=== PATIENT | female | born 1985 | race Caucasian/White ===

== ENCOUNTER 2017-02-28 07:08 | Day surgery (SDC) | payer OTHER ==
--- NOTE | 2017-02-26 17:47 | GHP ---
[f rep st] PREOP HISTORY AND PHYSICAL DATE OF OPERATION: 02/28/2017. CHIEF COMPLAINT: Right breast mass. HISTORY OF PRESENT ILLNESS: The patient is a 32-year-old woman who discovered a right breast mass in August 2016. She had ultrasound diagnostic mammogram on 11/22/16 which did not show a mammographic correlate to the easily palpable firm nodule. The nodule has not changed in size. It feels like a piece of gravel. She reports occasional tenderness but no sharp pain, no nipple changes or drainage. She has a strong family history of breast cancer; mother diagnosed in her 60s, maternal aunt diagnosed in her 60s, and maternal great grandmother. Her aunts tested negative for BRCA 1 and 2. Her father has a history of prostate cancer. She is G1, P1, currently taking oral contraceptives. She was 11 years old at her 1st menstrual period and menstruates regularly. No changes since her office visit. PAST MEDICAL HISTORY: Allergic rhinitis, asthma, depression, high cholesterol, thoracic outlet syndrome. PAST SURGICAL HISTORY: section, knee reconstruction, knee surgery. MEDICATIONS: Acyclovir, Advair, Claritin, fluoxetine, Ortho Tri-Cyclen Lo, prednisone, Symbicort, Ventolin. ALLERGIES: Azithromycin, cephalosporins, minocycline, neomycin, sulfa. FAMILY MEDICAL HISTORY: Alcoholism, Alzheimer disease, asthma, blood transfusion, breast cancer as above, depression, diabetes, GERD, heart disease, hyperlipidemia, hypertension, hypothyroidism, ovarian cyst, pneumonia. SOCIAL HISTORY: She reports drinking 4 alcoholic beverages per week. She denies recreational drug use. She is a nonsmoker. She is with 1 child. She is a teacher. REVIEW OF SYSTEMS: A 10-point review of systems negative aside from HPI. PHYSICAL EXAMINATION: GENERAL: A well-developed, well-nourished woman in no acute distress. HEENT: Normocephalic, atraumatic. No hearing deficits. Pupils equal and round. No scleral icterus. Mucous membranes moist. NECK: Trachea midline. RESPIRATORY: No increased work of breathing. Clear to auscultation bilaterally. CARDIOVASCULAR: Regular rate and rhythm. No peripheral edema. BREASTS: Periareolar nodule in the right breast 12 o'clock position, 2 cm from the nipple. No other masses of bilateral breasts. LYMPH: No cervical, supraclavicular, or axillary lymphadenopathy. SKIN: Warm and dry. PSYCH: Mood and affect normal. IMPRESSION AND PLAN: The patient is a 32-year-old woman with a right breast periareolar nodule at the 12 o'clock position palpable. She presents for excisional biopsy. We discussed risks of surgery including but not limited to heart attack, stroke, blood clots, or . We discussed risk of infection, bleeding, need for additional procedures or scar. She understands risks and would like to proceed. The patient additionally seen by Dr. Washburn, who agrees with the above impression and plan. /[id number]/MODL MTDD
[2017-02-28] MEDS ORDERED: BUPIVACAINE 0.5% 30 ML SDV ONE (07:19)
[2017-02-28] MEDS ORDERED: LIDOCAINE 1% 5 ML SDV ONE (07:25)
[2017-02-28] MEDS ORDERED: LR 1,000 ML IV ONE (07:31)
[2017-02-28] MEDS ORDERED: VANCOMYCIN HCL/NORMAL SALINE 250 ML IV ONE (08:00)
[2017-02-28] MEDS ORDERED: MIDAZOLAM 2 MG/2 ML VIAL ONE (08:15)
[2017-02-28] MEDS ORDERED: fentaNYL 100 MCG/2 ML INJ ONE ×2 (08:25→08:39)
[2017-02-28] MEDS ORDERED: LIDOCAINE 1% 30 ML SDV ONE (08:37)
[2017-02-28] MEDS ORDERED: LIDOCAINE 2% 5 ML SDV ONE (08:38)
[2017-02-28] MEDS ORDERED: DEXAMETHASONE 4 MG/ML VIAL ONE (08:38)
[2017-02-28] MEDS ORDERED: KETOROLAC 30 MG/1 ML SDV ONE (08:49)
[2017-02-28] MEDS ORDERED: PROPOFOL/EMULSION 500 MG/50 ML BOTTLE IV ONE (08:53)
--- NOTE | 2017-02-28 09:12 | GOP ---
[f rep st] OPERATIVE REPORT DATE OF OPERATION: 02/28/2017 SURGEON: Cailin Washburn MD MEDICAL LIBRARY ASSISTANT: Jackeline Palmer PA-C. ANESTHESIA: Monitored anesthesia care with IV sedation. ANESTHESIOLOGIST: Dr. Do Katz. PREOPERATIVE DIAGNOSIS: Right breast mass. POSTOPERATIVE DIAGNOSIS: Right breast mass. PROCEDURE PERFORMED: Excisional biopsy right breast. FINDINGS: Firm tissue. SPECIMENS: Right breast mass. ESTIMATED BLOOD LOSS: 10 cc. INDICATIONS: The patient is a 32-year-old with a right breast mass. She has a family history of breast cancer. Her mammogram did not show an abnormality. DESCRIPTION OF PROCEDURE: The patient was brought in the operating room, placed supine on the table. Monitored anesthesia care with IV sedation was performed. Her right breast was prepped and draped in the usual sterile fashion. I infiltrated the area with 0.5% Marcaine mixed with 1% lidocaine. I made a periareolar incision. I created superior and inferior skin flaps. I dissected down beyond the level of the mass. This was completely excised and sent to Pathology for permanent. Hemostasis was achieved with electrocautery. The wound was closed with 3-0 Vicryl, followed by 4-0 Monocryl. Mastisol, Steri -Strips, and a sterile dressing were applied. She was awakened in the operating room and transferred to PACU in stable condition. /[id number]/MODL MTDD
== END 2017-02-28 11:10 | disposition home or self-care (01) ==
LOC: FSGY 07:08
PROVIDERS: ATTEND Surgery
PROC: 0HBT0ZX Excision of Right Breast, Open Approach, Diagnostic (ICD-10-PCS; principal; 2017-02-28 08:45)
DX: N60.31 Fibrosclerosis of right breast (principal); N60.91 Unspecified benign mammary dysplasia of right breast; N60.81 Other benign mammary dysplasias of right breast
CPT/HCPCS: J1100; J1885; J2250; J2704; J3010; J3370

== ENCOUNTER → 2018-08-07 | Outpatient (CLI) | payer OTHER | LOC: FIMAGING 10:13 | PROVIDERS: ATTEND Family Medicine | DX: R53.83 Other fatigue (principal); R63.5 Abnormal weight gain ==

== ENCOUNTER → 2018-10-20 | Day surgery (SDC) | payer OTHER ==
[~2018-10-20] MED LIST: ALBUTEROL 3 ML DEYVIAL IH PRN; ALBUTEROL 3 ML DEYVIAL ONE; BUPIVACAINE 0.25% 10 ML SDV ONE; DEXAMETHASONE 4 MG/ML VIAL ONE; DIAZEPAM 5 MG/ML 1 ML SYR IVP PRN; GLYCOPYRROLATE 0.2 MG/1 ML VIAL ONE; HYDROCODONE/APAP 5/325 TAB ONE; HYDROmorphONE/DILAUDID 2 MG/ML INJ IVP PRN; IBUPROFEN 600 MG TAB PO PRN; KETOROLAC 30 MG/1 ML SDV ONE; LABETALOL HCL 5 MG/ML 20 ML MDV IVP PRN; LIDOCAINE 1% 2 ML INJ ID PRN; LIDOCAINE 2% 5 ML SDV ONE; LR 1,000 ML IV ONE; MEPERIDINE 25 MG/0.5 ML AMP IVP PRN; MIDAZOLAM 2 MG/2 ML VIAL IVP ONE; NALOXONE HCL 0.4 MG/ML INJ IVP PRN; ONDANSETRON 4 MG/2 ML VIAL ONE; PROMETHAZINE HCL 25 MG/ML INJ IVP PRN; PROPOFOL/EMULSION 500 MG/50 ML BOTTLE IV ONE; ROCURONIUM 50 MG/5 ML VIAL ONE; SILVER NITRATE APPLICATOR 1 APPL TP ONE; fentaNYL 100 MCG/2 ML INJ ONE
--- NOTE | 2018-10-20 06:45 | PDANEPAE ---
ANE History of Present Illness 33 yo desires sterilization ANE Past Medical History - Cardiovascular History Hx Hypertension: No Hx Arrhythmias: No Hx Chest Pain: No Hx Coronary Artery / Peripheral Vascular Disease: No Hx CHF / Valvular Disease: No Hx Palpitations: No Cardiovascular History Comment: PREECLAMPSIA W/ - Pulmonary History Hx COPD: No Hx Asthma/Reactive Airway Disease: Yes Hx Recent Upper Respiratory Infection: No Hx Oxygen in Use at Home: No Hx Sleep Apnea: No Sleep Apnea Screening Result - Last Documented: Negative Pulmonary History Comment: EXERCISE INDUCED ASTHMA. PNEUMONIA 1987 - Neurologic History Hx Cerebrovascular Accident: No Hx Seizures: No Hx Dementia: No - Endocrine History Hx Diabetes: No Hypothyroid: No Hyperthyroid: No Obesity: no - Renal History Hx Renal Disorders: No - Liver History Hx Hepatic Disorders: No - Neurological & Psychiatric Hx Hx Neurological and Psychiatric Disorders: Yes Neurological / Psychiatric History Comment: HX OF DEPRESSION PREVIOUSLY ON RX. ? PTSD - Cancer History Hx Cancer: No - Congenital Disorder History Hx Congenital Disorders: No - GI History GERD: no Hx Gastrointestinal Disorders: No - Other Health History Other Health History: THORACIC OUTLET SYNDROME L COLLARBONE & ARMPIT. ADULT ACNE. ALLERGIC RHINITIS/SEASONAL ALLERGIES. INSOMNIA - Chronic Pain History Chronic Pain: Yes (KNEES) - Surgical History Prior Surgeries: RT BREAST BX 01/2017. R KNEE LATERAL RELEASE. L KNEE TIBIAL TUBEROSITY & RELEASE. WISDOM TEETH & GUM SURGERY. C SECTION. R KNEE TIBIAL TUBEROSITY & LIGAMENT CADAVER ANE Review of Systems Review of systems is: negative Review of Systems: - Exercise capacity METS (RN): 4 METS ANE Patient History - Allergies Allergies/Adverse Reactions: minocycline HCl [From Minocin] Allergy (Intermediate, Verified 05/01/16 12:34) DIZZINESS Skin Cleanser Combination No.4 [From Minocin] Allergy (Intermediate, Verified 12:34) DIZZINESS amoxicillin [Amoxicillin] Allergy (Verified 05/01/16 12:34) azithromycin [Azithromycin] Allergy (Verified 05/01/16 12:34) bacitracin [From Neosporin] Allergy (Verified 05/01/16 12:34) bacitracin zinc [From Neosporin] Allergy (Verified 05/01/16 12:34) cefazolin sodium [From Ancef] Allergy (Verified 05/01/16 12:34) Hives cephalexin monohydrate [From Keflex] Allergy (Verified 06/01/16 12:34) gramicidin D [From Neosporin] Allergy (Verified 05/01/16 12:34) neomycin sulfate [From Neosporin] Allergy (Verified 05/01/16 12:34) polymyxin B [From Neosporin] Allergy (Verified 05/01/16 12:34) polymyxin B sulfate [From Neosporin] Allergy (Verified 05/01/16 12:34) Sulfa (Sulfonamide Antibiotics) Allergy (Verified 05/01/16 12:34) Hives blackberries Allergy (Uncoded 05/01/16 12:34) Tingling of mouth/throat - Home Medications Home medications: home medication list seen and reviewed Home Medications: Norgestimate-Ethinyl Estradiol [Ortho Tri-Cyclen Lo Tablet] 1 each PO DAILY 01/15 [Last Taken 10/19/18] Budesonide/Formoterol 160/4.5 [Symbicort 160-4.5 Mcg Inh (RX)] 1 puffs IH DAILY PRN 05/01/16 [Last Taken 3 Weeks Ago ~09/29/18] Albuterol Sulfate [Ventolin Hfa] 18 gm IH 10/20/18 [Last Taken 10/20/18] - NPO status NPO Since - Liquids (Date): 10/19/18 NPO Since - Liquids (Time): 22:00 NPO Since - Solids (Date): 10/19/18 NPO Since - Solids (Time): 21:00 - Anes Hx Anes Hx: no prior problems - Smoking Hx Smoking Status: Never smoked Marijuana use: No - Alcohol Use Alcohol Use: Occasionally - Family Anes Hx Family Anes Hx: none Family Hx Anesthesia Complications: NEG ANE Labs/Vital Signs - Vital Signs Blood Pressure: 165/111 Heart Rate: 91 Respiratory Rate: 18 O2 Sat (%): 98 Height: 162.56 cm Weight: 75.75 kg ANE Physical Exam - Airway Neck exam: FROM Mallampati Score: Class 2 Mouth exam: normal dental/mouth exam - Pulmonary Pulmonary: no respiratory distress, clear to auscultation - Cardiovascular Cardiovascular: regular rate and rhythym, no murmur, rub, or gallop - ASA Status ASA Status: II ANE Anesthesia Plan Anesthesia Plan: general endotracheal anesthesia
--- NOTE | 2018-10-20 07:11 | PDGENHP ---
History & Physical Chief Complaint: family status complete History of Present Illness: desires sterilization Pertinent Past, Social, Family History: hx prior c section, knee surgery x 3, breast biopsy and dental surgery. hx ptsd from pregnany and delivery. hx asthma. hx thyroid goiter Relevant Physical Exam: phyiscal exam unremarkable Cardiorespiratory Assessment: lungs clear, heart regular rate and rhythm, normal pelvic exam
--- NOTE | 2018-10-20 07:41 | POSTANESTH ---
Post Anesthetic Evaluation Cardiovascular Status: Normal, Stable Respiratory Status: Normal, Stable Level of Consciousness/Mental Status: Can Participate in Eval Pain Control: Adequate, Prn Tx Ordered Nausea/Vomiting Control: Adequate, Prn Tx Ordered Complications Possibly Related to Anesthesia: None Noted
--- NOTE | 2018-10-20 08:22 | POSTOPPROG ---
Post Op Note Date of Operation: 10/20/18 Surgeon: Jennifer Serna Anesthesiologist: gato Anesthesia: GET(General Endotracheal) Pre-op Diagnosis: family status complete Post-op Diagnosis: same Procedure: laparoscopic bilateral salpingectomy Inf/Abcess present in the surg proc area at time of surgery?: No Depth: Organ Space EBL: Minimal Specimen(s): bilateral fallopian tubes
[2018-10-20] MEDS: fentaNYL 100 MCG/2 ML INJ IVP PRN ×2 (08:46→09:04)
--- NOTE | 2018-10-20 09:23 | GOP ---
DATE OF OPERATION: 10/20/2018 SURGEON: Jennifer Serna DO ANESTHESIA: General endotracheal tube. ANESTHESIOLOGIST: Dr. Lowery PREOPERATIVE DIAGNOSIS: Family status complete. POSTOPERATIVE DIAGNOSIS: Family status complete. PROCEDURE PERFORMED: Laparoscopic bilateral salpingectomy. FINDINGS: SPECIMENS: Bilateral fallopian tubes. ESTIMATED BLOOD LOSS: 5 cc. INDICATIONS: Patient is a 33-year-old, 2, para 1-0-0-1, whose family status is complete. We have had multiple long discussions over a several year history about management options for co ntrol and patient has family in a place where she wants to proceed with the bilateral salpingectomy. Risks and benefits have been extensively reviewed with the patient, and patient has been properly co nsented. DESCRIPTION OF PROCEDURE: Patient was taken to the operating room with intravenous fluids in place. She was then placed on the operating room table in the dorsal supine position, where general anesthe jose was obtained. She was then repositioned into the [facility] and prepped and draped in normal sterile fashion. Exam under anesthesia revealed a mobile, midposition uterus with no adnexal masses. A Damian catheter was already in place. Venodyne's were placed on her lower extremities. A speculum was then placed in the patient's vagina. An Allis clamp was used to grasp the anterior lip of the cervix, and an aco rn uterine manipulator was then introduced. Attention was then turned to the patient's abdomen, where a 5 mm skin incision was then made in the u mbilicus and a 5 mm trocar was advanced into the patient's abdomen under direct visualization with th e laparoscope. The abdomen was then insufflated with CO2 gas until an adequate pneumoperitoneum was achieved. The area underneath the trocar insertion site was found to be unremarkable. The abdomen w as explored. There was a small omental adhesion noted to the anterior abdominal wall, but remainder of the lower and upper abdomen was unremarkable. Attention was then turned to the patient's left lower quadrant where a 5 mm skin incision was then ma de after being injected with local anesthesia and a 5 mm trocar was then advanced into the patient's abdomen under direct visualization. An additional trocar was then placed in the patient's right lowe r quadrant in a similar fashion in the same position after injection with local anesthesia. This was done under direct visualization. The ovaries, tubes, and the uterus were unremarkable. The left fa llopian tube was then identified and followed out to the fimbriated end and grasped and elevated up. A left salpingectomy was then performed without difficulty, and the specimen was withdrawn through t he trocar and then handed off. Attention was then turned to the contralateral side. The fallopian tube was then identified, followe d out to the fimbriated end, tented up, and salpingectomy was then performed. The specimen was then pulled out through the trocar. The pedicles were found to be hemostatic. Ureters were peristalsing. Remainder of findings were unremarkable. The CO2 gas was then expressed from the patient's abdomen and the trocars were then removed without d ifficulty. The skin was then closed with 4-0 Monocryl in a subcuticular fashion. A speculum exam wa s performed and the uterine manipulator and then Allis clamp were then removed. No bleeding was note d. Patient was then returned to the dorsal supine position. Damian catheter was removed and she was easily awoken from anesthesia and then taken to recovery room in stable condition. Sponge, lap, and needle count were correct x2. The patient was transported to the recovery room. /[id number]/MODL
[2018-10-20] MEDS: HYDROCODONE/APAP 5/325 TAB PO PRN ×2 (10:11→12:08)
[2018-10-20 12:29] VITALS: BP 161/125
== END | disposition home or self-care (01) ==
LOC: UNDOADMOB 05:54 → F3N 05:54 → FSGY 05:55 → EDSTATUS 07:15 → UNDODISOB 12:20
PROVIDERS: ATTEND Obstetrics & Gynecology
PROC: 0UT74ZZ Resection of Bilateral Fallopian Tubes, Percutaneous Endoscopic Approach (ICD-10-PCS; principal; 2018-10-20 07:15)
DX: Z30.2 Encounter for sterilization (principal); J45.990 Exercise induced bronchospasm; Z87.59 Personal history of other complications of pregnancy, childbirth and the puerperium
CPT/HCPCS: J1100; J1885; J2250; J2405; J2704; J3010; J7613

== ENCOUNTER 2019-03-30 08:46 | Emergency (ER) | payer OTHER ==
--- NOTE | 2019-03-30 09:13 | EDPHY ---
H & P Time Seen by Provider: 03/30/19 08:52 HPI/ROS: Chief complaint. Chest pain HPI. 34-year-old female presents emergency department with chest pain. It began at 7:45 a.m. While she was driving her daughter to school. She was well last night and when she woke up this morning. She describes onset of pressure to her upper chest. It is central behind her sternum. There is no radiation. She has slight shortness of breath. Slight lightheaded. Not sick. No fever cough. No unusual leg pain or swelling. She has been training for a triathlon and has had no chest discomfort or shortness of breath. No abdominal. ROS 10 systems were reviewed and negative with the exception of the elements mentioned in the history of present illness Past Medical/Surgical History: Thoracic outlet syndrome, allergies, asthma Family history father had an MD at age 50 Social History: , nonsmoker, no alcohol Smoking Status: Never smoked Physical Exam: General Appearance: Alert well-developed female mild distress vital signs significant for initial blood pressure 160/125 Eyes: Pupils equal and round no pallor or injection. ENT, Mouth: Mucous membranes are moist. Respiratory: There are no retractions, lungs are clear to auscultation. Cardiovascular: Regular rate and rhythm. Gastrointestinal: Abdomen is soft and nontender, no masses, bowel sounds normal. Neurological: Awake and alert, sensory and motor exams grossly normal. Skin: Warm and dry, no rashes. Musculoskeletal: Neck is supple nontender. Extremities symmetrical, full range of motion. Psychiatric: Patient is oriented X 3, there is no agitation. Constitutional: Initial Vital Signs Temperature (C) 36.7 C 03/30/19 08:48 Heart Rate 86 03/30/19 08:48 Respiratory Rate 20 03/30/19 08:48 Blood Pressure 160/125 H 03/30/19 08:48 O2 Sat (%) 98 03/30/19 08:48 O2 Delivery Mode Room Air Allergies/Adverse Reactions: minocycline HCl [From Minocin] Allergy (Intermediate, Verified 03/30/19 08:48) DIZZINESS Skin Cleanser Combination No.4 [From Minocin] Allergy (Intermediate, Verified 08:48) DIZZINESS adhesive Allergy (Verified 03/30/19 08:48) amoxicillin [Amoxicillin] Allergy (Verified 03/30/19 08:48) azithromycin [Azithromycin] Allergy (Verified 03/30/19 08:48) bacitracin [From Neosporin] Allergy (Verified 03/30/19 08:48) bacitracin zinc [From Neosporin] Allergy (Verified 03/30/19 08:48) cefazolin sodium [From Ancef] Allergy (Verified 03/30/19 08:48) Hives cephalexin monohydrate [From Keflex] Allergy (Verified 03/30/19 08:48) gramicidin D [From Neosporin] Allergy (Verified 03/30/19 08:48) neomycin sulfate [From Neosporin] Allergy (Verified 03/30/19 08:48) polymyxin B [From Neosporin] Allergy (Verified 03/30/19 08:48) polymyxin B sulfate [From Neosporin] Allergy (Verified 03/30/19 08:48) Sulfa (Sulfonamide Antibiotics) Allergy (Verified 03/30/19 08:48) Hives blackberries Allergy (Uncoded 03/30/19 08:48) Tingling of mouth/throat Home Medications: Medication Instructions Recorded Budesonide/Formoterol 160/4.5 1 puffs IH DAILY PRN 05/01/16 [Symbicort 160-4.5 Mcg Inh (RX)] Albuterol [Proventil Inhaler HFA 1 - 2 puffs IH DAILY PRN 18 (*)] Medical Decision Making - Diagnostics EKG Interpretation: EKG interpreted by me shows normal sinus rhythm normal interval and axis. QRS is normal. There is no significant ST elevation. There is slight ST depression in leads V3, V4. No arrhythmia. Rate is 86 Repeat EKG is normal Imaging Results: Imaging Impressions Chest X-Ray 03/30/19 09:13 Impression: Clear lungs. Negative portable chest. Procedures: IV normal saline, monitor 9:25 a.m. blood pressure is 121/73 with heart rate 79 ED Course/Re-evaluation: Re-evaluation 10:15 a.m.. Patient is stable. She and I discussed imaging lab EKG results. She continues to have some chest discomfort. She will be given IV Toradol and repeat troponin. After the IV Toradol patient's chest discomfort is much improved. Patient and I discussed laboratory EKG imaging study results. We discussed treatment plan including criteria for return importance of follow-up and further evaluation. She expresses understanding and agreement. Patient is offered admission but feels comfortable being treated as an outpatient Differential Diagnosis: I considered acute coronary syndrome, pulmonary embolus, thorax. Heart score is 1 as the patient has risk factors for heart disease with her father. - Data Points Laboratory Results: Laboratory Results 03/30/19 08:50 03/30/19 08:50 03/30/19 03/30/19 03/30/19 10:56 09:14 08:50 WBC RBC Hgb Hct MCV MCH MCHC RDW Plt Count MPV Neut % (Auto) Lymph % (Auto) Bates % (Auto) Eos % (Auto) Baso % (Auto) Nucleat RBC Rel Count Absolute Neuts (auto) Absolute Lymphs (auto) Absolute Monos (auto) Absolute Eos (auto) Absolute Basos (auto) Absolute Nucleated RBC Immature Gran % Immature Gran # D-Dimer Sodium Potassium Chloride Carbon Dioxide Anion Gap BUN Creatinine Estimated GFR Glucose Calcium POC Troponin I 0.00 ng/mL ng/mL 0.00 ng/mL ng/mL (0.00-0.08) (0.00-0.08) Beta HCG, Qual NEGATIVE 03/30/19 03/30/19 03/30/19 08:50 08:50 08:50 WBC 7.60 10^3/uL 10^3/uL (3.80-9.50) RBC 5.29 10^6/uL 10^6/uL (4.18-5.33) Hgb 15.4 g/dL g/dL (12.6-16.3) Hct 46.3 % % (38.0-47.0) MCV 87.5 fL fL (81.5-99.8) MCH 29.1 pg pg (27.9-34.1) MCHC 33.3 g/dL g/dL (32.4-36.7) RDW 14.0 % % (11.5-15.2) Plt Count 270 10^3/uL 10^3/uL (150-400) MPV 9.3 fL fL (8.7-11.7) Neut % (Auto) 51.2 % % (39.3-74.2) Lymph % (Auto) 37.9 % % (15.0-45.0) Bates % (Auto) 6.8 % % (4.5-13.0) Eos % (Auto) 3.2 % % (0.6-7.6) Baso % (Auto) 0.8 % % (0.3-1.7) Nucleat RBC Rel Count 0.0 % % (0.0-0.2) Absolute Neuts (auto) 3.89 10^3/uL 10^3/uL (1.70-6.50) Absolute Lymphs (auto) 2.88 10^3/uL 10^3/uL (1.00-3.00) Absolute Monos (auto) 0.52 10^3/uL 10^3/uL (0.30-0.80) Absolute Eos (auto) 0.24 10^3/uL 10^3/uL (0.03-0.40) Absolute Basos (auto) 0.06 10^3/uL 10^3/uL (0.02-0.10) Absolute Nucleated RBC 0.00 10^3/uL 10^3/uL (0-0.01) Immature Gran % 0.1 % % (0.0-1.1) Immature Gran # 0.01 10^3/uL 10^3/uL (0.00-0.10) D-Dimer 0.32 ug/mLFEU ug/mLFEU (0.00-0.50) Sodium 138 mEq/L mEq/L (135-145) Potassium 4.2 mEq/L mEq/L (3.5-5.2) Chloride 105 mEq/L mEq/L (97-110) Carbon Dioxide 22 mEq/l mEq/l (22-31) Anion Gap 11 mEq/L mEq/L (6-14) BUN 16 mg/dL mg/dL (7-23) Creatinine 0.7 mg/dL mg/dL (0.6-1.0) Estimated GFR > 60 Glucose 94 mg/dL mg/dL (70-100) Calcium 9.3 mg/dL mg/dL (8.5-10.4) POC Troponin I Beta HCG, Qual Medications Given: Discontinued Medications Ketorolac Tromethamine (Toradol) 30 mg IVP EDNOW ONE Stop: 03/30/19 10:27 Last Admin: 03/30/19 11:12 Dose: 30 mg Point of Care Test Results: Chemistry 03/30/19 03/30/19 10:56 09:14 POC Troponin I 0.00 ng/mL ng/mL 0.00 ng/mL ng/mL (0.00-0.08) (0.00-0.08) Departure - Departure Disposition: Home, Routine, Self-Care Clinical Impression: Chest pain Qualifiers: Chest pain type: unspecified Qualified Code(s): R07.9 - Chest pain, unspecified Condition: Good Instructions: Chest Pain (ED) Additional Instructions: Easy activity next 2-3 days until see Cardiology Call Cardiology today to arrange further evaluation in the next 2-3 days Ibuprofen 600 mg every 6 hr for discomfort Return for worsening chest discomfort or trouble breathing Referrals: Leanne Parmar DO [Primary Care Provider] - As per Instructions Johnie Renteria MD [Medical Doctor] - 2-3 days, call for appt.
[2019-03-30 09:23] LABS: PLATELET COUNT 270 10^3/uL (150-400)
[2019-03-30] MEDS ORDERED: KETOROLAC 30 MG/1 ML SDV IVP ONE (10:26)
[2019-03-30 12:14] VITALS: BP 137/100
--- NOTE | 2019-03-30 13:48 | CPEKG ---
Test Reason : OPEN Blood Pressure : / mmHG Vent. Rate : 073 BPM Atrial Rate : 074 BPM P-R Int : 147 ms QRS Dur : 091 ms QT Int : 402 ms P-R-T Axes : 065 070 027 degrees QTc Int : 443 ms Sinus rhythm Confirmed by Phil Marr ([id number]) on 03/30/2019 1:48:02 PM Referred By: PHIL MARR Confirmed By:Phil Marr
--- NOTE | 2019-03-30 13:49 | CPEKG ---
Test Reason : OPEN Blood Pressure : / mmHG Vent. Rate : 086 BPM Atrial Rate : 085 BPM P-R Int : 144 ms QRS Dur : 097 ms QT Int : 372 ms P-R-T Axes : 070 066 007 degrees QTc Int : 445 ms Sinus rhythm Minimal ST depression, inferior leads Confirmed by Phil Marr ([id number]) on 03/30/2019 1:48:46 PM Referred By: PHIL MARR Confirmed By:Phil Marr
== END 2019-03-30 12:13 | disposition home or self-care (01) ==
DX: R07.9 Chest pain, unspecified (principal)
CPT/HCPCS: 84484-ER; 96374; J1885